=== PATIENT | female | born 1970 | race Caucasian/White ===

== ENCOUNTER 2018-05-02 11:47 | Outpatient (REF) | payer OTHER, SELFPAY ==
[2018-05-02 19:12] LABS: BUN 15 mg/dL (7-18); CREATININE 0.93 mg/dL (0.55-1.02); Calcium 9.5 mg/dL (8.5-10.1); Chloride 104 mmol/L (98-107); Glucose 91 mg/dL (70-100); Potassium 4.5 mmol/L (3.5-5.1); Sodium 141 mmol/L (136-145); TSH 3.41 uIU/mL (0.358-3.74)
== END 2018-05-02 12:07 ==
LOC: NCHCN 11:47
PROVIDERS: PCP Physician Assistant Medical; Visit Provider Nurse Practitioner Family
DX: I10 Essential (primary) hypertension (principal); E03.9 Hypothyroidism, unspecified
CPT/HCPCS: 80048; 84443

== ENCOUNTER 2020-01-16 18:36 | Outpatient (REF) | payer OTHER, SELFPAY ==
[2020-01-16 21:05] LABS: HGB 13.9 g/dL (11.2-15.7); MCH 28.4 pg (27.0-33.0); MCHC 32.3 % (32.0-36.0); MCV 87.8 fL (80-95); MPV 11.9 fL (8.0-11.0); Platelet Count 250 10^3/uL (130-400); RDW 12.7 % (11.7-14.6); RDW-SD 41.1 fL; WBC 9.34 10^3/uL (4.4-10.8)
[2020-01-16 21:57] LABS: Amylase 47 U/L (25-115); Anion Gap 6.1 mmol/L (3-11); BUN 13 mg/dL (7-18); CO2 27.9 mmol/L (21.0-32.0); CREATININE 1.06 mg/dL (0.55-1.02); Chloride 104 mmol/L (98-107); Estimated GFR 54.87 (mL/min/1.73m2); Glucose 107 mg/dL (74-106); Lipase 144 U/L (73-393); Sodium 138 mmol/L (136-145)
== END 2020-01-16 18:56 ==
LOC: NCHCN 18:36
PROVIDERS: PCP Nurse Practitioner Family; Visit Provider Nurse Practitioner Family
DX: R10.9 Unspecified abdominal pain (principal); E03.9 Hypothyroidism, unspecified
CPT/HCPCS: 80048; 80061; 82550; 83690; 85027; 82150; 84443; 84450; 84460

== ENCOUNTER 2021-08-22 15:20 | Emergency (ER) | payer OTHER, SELFPAY ==
[2021-08-22 15:34] VITALS: BP 119/59; PULSE 103; RESP 16; TEMP 36.6; O2SAT 97
--- NOTE | 2021-08-22 15:45 | DI.CT_ITS ---
Exam(s) CT ABDOMEN PELVIS WO EXAM: CT ABDOMEN PELVIS WO CLINICAL HISTORY: hx of colitis, 2 weeks diarrhea. TECHNIQUE: Imaging Protocol: Axial computed tomography images with coronal and sagittal reformatted images were created and reviewed. COMPARISON: CT ABD PELVIS WITH CONTRAST from 07/23/2015 FINDINGS: ABDOMEN: Lung Bases: Normal where visualized. Liver: Normal density. No measurable mass. Gallbladder and biliary tract: Status post cholecystectomy. No biliary ductal dilatation. Pancreas: Normal density, no abnormal calcifications or inflammatory process. Spleen: Normal. Kidneys: Normal size, contour and axis.No radiodense stones or obstructive uropathy. No masses seen. Adrenal glands: No mass is seen. Lymph nodes: Within normal limits. Abdominal Aorta: Abdominal portion non-dilated. Mild atherosclerosis. PELVIS: Bladder:Symmetric distention, no gross wall thickening. Bowel: No obstruction or bowel wall thickening. Appendix is unremarkable. Peritoneal cavity: No ascites, collection or mesenteric inflammatory response. No free air. Reproductive organs: Within normal limits. Bones: Within normal limits. Soft Tissues: Within normal limits. IMPRESSION: No acute abdominal or pelvic process. RADIATION DOSE DELIVERED: 1,073.45mGy.cm Total DLP DATA REPOSITORY: All CT scans at this facility are submitted to the National Radiology Data Registry (NRDR) Dose Index Registry (DIR) with the [employer] (ACR). RADIATION OPTIMIZATION: All CT scans at this facility use at least one of these dose optimization te chniques: automated exposure control; mA and/or kV adjustment per patient size (includes targeted exa ms where dose is matched to clinical indication); or iterative reconstruction.
--- NOTE | 2021-08-22 16:00 | W.ED.GENAD ---
Discharge Plan Disposition Patient Disposition: HOME Condition: Stable Discharge Details Chief Complaint: Nausea/Vomit/Diar Clinical Impression: Diarrhea, Hypokalemia Primary Care Provider: Lalo Potts ED Provider: Iftikhar Beck Home Meds and New Rx's Prescriptions: No Action ibuprofen 800 MG tablet 800 mg PO Q8H PRN PRN sumatriptan succinate [Imitrex] 100 MG tablet 100 mg PO PRN Qty: 6 levothyroxine [Synthroid] 50 MCG tablet 50 mcg PO DAILY Qty: 90 diphenoxylate-atropine [Lomotil] 1 TAB tablet 1 ea PO QLOOSE PRNQty: 20 acetazolamide 500 mg Capsule, Extended Release 500 mg PO BID amitriptyline 25 mg Tablet 25 mg PO .QHS lisinopril 10 mg Tablet 10 mg PO DAILY oxycodone 5 mg Capsule 5 mg PO pregabalin 150 mg Capsule 150 mg PO QID Discharge Instructions Instructions: Hypokalemia (ED), Acute Diarrhea (ED) Additional Instructions: Please follow-up with GI in the coming weeks for further evaluation. Ensure that you stay hydrated consider using Pedialyte and/or Gatorade. Return to the emergency department for worsening symptoms specifically signs of dehydration or worsening diarrhea. Medical Decision Making 50-year-old female history of leukocytic colitis presents with 2 weeks of diarrhea, has not heard back from primary care doctor regarding blood tests were performed this week as well as a stool sample that was performed this week. Increased diarrhea some mucus involved. Nausea decreased p.o. intake. Sensation of dehydration. Does have slight drying of oral mucosa is mildly tachycardic. Abdomen soft nontender nondistended. Consider colitis, infectious versus inflammatory less likely ischemic given no component of pain versus food allergy versus electrolyte abnormality versus less likely appendicitis, patient has no urinary symptoms such as polyuria or dysuria therefore less likely cystitis or pyelonephritis. Screening labs imaging including CT abdomen pelvis with oral contrast, \18: 48 patient resting comfortably no acute distress. Hypokalemia on labs, p.o. and IV repletion completed. IV fluid administered. Patient's heart rate has decreased to normal range. Color is improved. Feeling better. CT largely unremarkable. Patient will be given GI follow-up at [facility] for second opinion. Home care instructions and return precautions given HPI General Date/Time Provider Initiated Documentation: 08/22/21 15:39. HPI Narrative: 50-year-old female history of leukocytic colitis, presents with 2 weeks of diarrhea, nonbloody sometimes mucoid, decreased p.o. intake sensation of dehydration and fatigue. Had blood work done 2 days ago but has not heard back from her physician regarding these results also gave a stool sample has not heard back on results. Is followed by GI specialist and neurology specialist at [facility]. No recent hospitalization, no recent antibiotics. No history of C. difficile. No urinary symptoms Related Data Home Medications Medication Instructions Recorded Confirmed ibuprofen 800 mg tablet 800 mg PO Q8H PRN PRN 07/25/12 08/22/21 sumatriptan succinate 100 mg 100 mg PO PRN #6 tabs 05/27/15 08/22/21 tablet (Imitrex) levothyroxine 50 mcg tablet 50 mcg PO DAILY #90 tabs 05/28/15 08/22/21 (Synthroid) diphenoxylate-atropine 2.5 1 ea PO QLOOSE PRN #20 tabs 08/11/15 08/22/21 mg-0.025 mg tablet (Lomotil) acetazolamide 500 mg 500 mg PO BID 08/22/21 08/22/21 capsule,extended release amitriptyline 25 mg tablet 25 mg PO .QHS 08/22/21 08/22/21 lisinopril 10 mg tablet 10 mg PO DAILY 08/22/21 08/22/21 oxycodone 5 mg capsule 5 mg PO 08/22/21 pregabalin 150 mg capsule 150 mg PO QID 08/22/21 08/22/21 Allergies Allergy/AdvReac Type Severity Reaction Status Date / Time amoxicillin Allergy Unknown Unverified 07/31/15 13:40 General Stated Complaint: Nausea/Vomit/Diar BENJAMIN: 3 Review of Systems Narrative: Review of Systems Constitutional: Dehydration fatigue Eyes: negative ENT: negative Cardiovascular: negative Respiratory: negative Gastrointestinal: Diarrhea : negative Musculoskeletal: negative Skin: negative Neurologic: negative Psych: negative PFSH All Active Problems (Updated 08/22/21 @ 18:50 by Iftikhar Beck MD) Diarrhea (Acute) Hypokalemia (Acute) Medical History (Updated 08/22/21 @ 18:50 by Iftikhar Beck MD) HTN (hypertension) Hypothyroidism Surgical History (Updated 01/11/18 @ 14:35 by [employer] [place]) Cholecystectomy 2007 Social History Smoking/Tobacco Use Status: Never Smoking risk assessment performed?: Yes Alcohol Intake: never Drug use: Never Exam Narrative Exam Narrative: Physical Examination General: alert, awake, cooperative, resting comfortably, no acute distress HEENT: normocephalic, atraumatic; PERRL, EOM intact, conjunctiva normal; no nasal discharge; slight drying of oral mucosa Neck: supple, trachea midline; full ROM Chest: normal to inspection Respiratory: normal respiratory effort, speaking in full sentences, clear to auscultation, no wheezing, rales or rhonchi Cardiac: Tachycardia, regular rhythm, S1S2 intact, no murmurs rubs or gallops GI: abdomen soft, non-tender, non-distended; no palpable mass or hepatosplenomegaly Skin: no lesions, rashes or trauma appreciated Neuro: AAOx3, normal speech, moving all extremities Psych: Appropriate mood and affect Course Vital Signs Vital signs: Vital Signs Temperature 36.6 C 08/22/21 15:34 Pulse 103 H 08/22/21 15:34 Respiratory Rate 16 08/22/21 15:34 Blood Pressure 119/59 L 08/22/21 15:34 Pulse Oximetry 97 08/22/21 15:34 Temperature 36.6 C 08/22/21 15:34 Temperature Source Oral 08/22/21 15:34 Pulse 103 H 08/22/21 15:34 Respiratory Rate 16 08/22/21 15:34 Respiratory Effort 08/22/21 15:34 Blood Pressure 119/59 L 08/22/21 15:34 Blood Pressure Position Sitting 08/22/21 15:34 Pulse Oximetry 97 08/22/21 15:34 Oxygen Delivery Method Room Air 08/22/21 15:34 Oxygen Flow Rate 0 08/22/21 15:34 Pain Level 6 08/22/21 15:34
[2021-08-22 16:23] LABS: Abs Immature Grans 0.03 10^3/uL (0.0-0.06); Absolute Basophil Count 0.05 10^3/uL (0.0-0.2); Absolute Eosinophil Count 0.14 10^3/uL (0.0-0.7); Absolute Lymphocyte Count 0.87 10^3/uL (1.2-3.4); Absolute Neutrophil Count 3.69 10^3/uL (1.2-6.7); Basophils % 0.9; Eosinophils % 2.6; HCT 45.8 % (36.0-46.0); HGB 15.2 g/dL (11.2-15.7); Immature Grans % 0.5; Lymphocytes % 15.9; MCH 27.8 pg (27.0-33.0); MCHC 33.2 % (32.0-36.0); MCV 84 fL (80-95); MPV 10.6 fL (8.0-11.0); Monocytes % 12.8; Neutrophils % 67.3; Platelet Count 250 10^3/uL (130-400); RBC 5.46 10^6/uL (3.93-5.22); RDW 13.8 % (11.7-14.6); RDW-SD 42.1 fL; WBC 5.48 10^3/uL (4.4-10.8)
[2021-08-22] MEDS: Breeza Beverage 473 ML BTL PO ×2 (16:26→16:28)
[2021-08-22] MEDS: Ondansetron 4 MG/2 ML VIAL IVP (16:27)
[2021-08-22] MEDS: Normal Saline 1,000 ML 1000 ML IV (16:27)
[2021-08-22 16:44] LABS: ALT 58 U/L (14-59); AST 23 U/L (15-37); Alkaline Phosphatase 94 U/L (46-116); Anion Gap 10.4 mmol/L (3-11); BUN 11 mg/dL (7-18); Bilirubin, Total 0.3 mg/dL (0.2-1.0); CO2 26.6 mmol/L (21.0-32.0); CREATININE 1.1 mg/dL (0.55-1.02); Calcium 8.9 mg/dL (8.5-10.1); Chloride 105 mmol/L (98-107); Estimated GFR 52.36 (mL/min/1.73m2); Glucose 94 mg/dL (74-106); Magnesium 2.3 mg/dL (1.8-2.4); Sodium 142 mmol/L (136-145); TSH (W/Ref FT4) 2.87 uIU/mL (0.36-3.74); Total Protein 7.1 g/dL (6.4-8.2)
[2021-08-22 16:48] LABS: Potassium 2.7 mmol/L (3.5-5.1)
[2021-08-22] MEDS: Potassium Chloride 20 MEQ TABCR PO (17:17)
[2021-08-22] MEDS: POTASSIUM CHLORIDE 10 MEQ/100 ML BAG 100 MEQ IVPB (17:17)
[2021-08-22 17:49] VITALS: BP 106/43; PULSE 84; RESP 16; TEMP 36.2; O2SAT 100
--- NOTE | 2021-08-22 18:07 | DI.VRAD_ITS ---
PROCEDURE INFORMATION: Exam: CT Abdomen And Pelvis Without Contrast Exam date and time: 08/22/2021 5:39 PM Age: 50 years old Clinical indication: Patient HX: HX of colitis, 2 weeks diarrhea TECHNIQUE: Imaging protocol: Computed tomography of the abdomen and pelvis without contrast. Other contrast: Oral, Gastrovue/Breeza, 25mL; COMPARISON: CT ABD PELVIS WITH CONTRAST 07/23/2015 6:59 PM FINDINGS: Liver: Normal. No mass. Gallbladder and bile ducts: The gallbladder is surgically absent. Pancreas: Normal. No ductal dilation. Spleen: Normal. No splenomegaly. Adrenal glands: Normal. No mass. Kidneys and ureters: The axis of the right kidney is rotated somewhat anteriorly. Otherwise, no abnormality is noted. There is no hydronephrosis on the right or the left. No nephrolithiasis. Stomach and bowel: Unremarkable. No obstruction. No mucosal thickening. Appendix: The appendix appears normal. Intraperitoneal space: Unremarkable. No free air. No significant fluid collection. Vasculature: Unremarkable. No abdominal aortic aneurysm. Lymph nodes: Unremarkable. No enlarged lymph nodes. Urinary bladder: Unremarkable as visualized. Reproductive: The uterus appears unremarkable. No adnexal masses are seen. Bones/joints: Unremarkable. No acute fracture. Soft tissues: Morbid obesity is present. IMPRESSION: 1. No acute findings. 2. Status post cholecystectomy. 3. Morbid obesity. Dictated and Authenticated by: Juan Manuel Brice MD. Ordering:SHAMEAK Buitrago MD
[2021-08-22 18:50] VITALS: BP 114/74; PULSE 87; RESP 18; TEMP 36.2; O2SAT 100
--- NOTE | 2021-08-22 18:52 | NUR.NOTE ---
Nursing Note: Referral given to Care Management to [facility] for chronic diarrhea in 1 to 2 weeks. Judith Forde
[2021-08-22 18:59] VITALS: BP 114/74; PULSE 87; RESP 18; TEMP 36.2; O2SAT 100
--- NOTE | 2021-08-25 11:35 | PDOC.ERCMACT ---
- If Service Date Differs Date of service: 08/25/21 Time of Service: 11:35 Care Management Activity Note Peggy is seen in the ED for chronic diarrhea. At the request of ED provider, GALE coordinates a referral to [facility] to assist Peggy in obtaining a second opinion. She has [employer] for insurance.
== END 2021-08-22 19:00 | disposition home or self-care (01) ==
PROVIDERS: Emergency Provider Emergency Medicine; PCP Nurse Practitioner Family
DX: R19.7 Diarrhea, unspecified (principal); E87.6 Hypokalemia
CPT/HCPCS: 80053; 96361; 96365; 96375; 99284; 74176; 83735; 84443; 85025; J2405; J3480; J3490

== ENCOUNTER 2024-05-28 08:44 | Emergency (ER) | payer BC, SELFPAY ==
[2024-05-28] VITALS (18 sets, daily range): BP systolic 131–145; BP diastolic 85–94; PULSE 27–130; RESP 13–23; TEMP 37.4–37.7; O2SAT 71–97
--- NOTE | 2024-05-28 09:00 | RT.EKG_ITS ---
APPROVED REPORT Exam: Resting ECG Reason for Exam: CP/Abd pain Patient Location: E HR:109 bpm ECG Measurements Heart Rate 109 AXIS MI 135 P 59 QRSd 61 QRS 12 QT 319 T 22 QTc 429 Conclusion Sinus tachycardia, rate 109 No interval abnormalities Isolated Q wave lead III No STEMI No priors available for comparison
--- NOTE | 2024-05-28 09:00 | DI.CT_ITS ---
Exam(s) CT CHEST PE ABD PELVIS W EXAM: CT CHEST PE ABD PELVIS W CLINICAL HISTORY: b/l rib pain, tachy, b/l lower abd pain. TECHNIQUE: Imaging Protocol: Axial CT angiography was performed with multi-slice acquisition and m ulti-planar and/or 3D reconstructions. CONTRAST MATERIAL: Intravenous: Omnipaque 350 Contrast volume:100 ml Oral: None COMPARISON: CT CT ABDOMEN PELVIS WO from 08/22/2021 FINDINGS: CHEST: PULMONARY ARTERIES: There are no intra-arterial filling defects to suggest the presence of acute pulm onary emboli. LUNGS: There is no evidence of pulmonary infarction.No confluent infiltrates ominous pulmonary nodule s. There are no pleural effusions. MEDIASTINUM: There is no hilar adenopathy. There are few is slightly prominent lymph nodes in the an terior left para-aortic mediastinal fat and in the subcarinal region. CARDIAC: Heart size is normal. There is no pericardial effusion. There is no significant shift of t he interventricular septum.Caliber of the thoracic aorta is within normal limits. No evidence of aor tic dissection. OSSEOUS: No significant osseous lesions.. ABDOMEN: There is a anterior midline subcutaneous shunt which enters the abdomen anteriorly slightly to the le ft and above the umbilicus. This shunt appears circular/continuous. There is no ascites. LIVER: There are no focal hepatic lesions nor dilatation of intrahepatic ducts. GALLBLADDER/BILIARY: The gallbladder is again noted to be surgically absent. CBD is not dilated. PANCREAS: No evidence of pancreatic mass nor dilatation of the pancreatic duct. SPLEEN: Spleen is not enlarged. There are no intrasplenic lesions. Splenic and portal veins are nguyen nt. ADRENALS: There are no significant adrenal masses. KIDNEYS:Left kidney unremarkable. Right kidney is again noted to be mild rotated with right renal hi lum pointing anteriorly, similar to previous. There does appear to be some peripheral enhancement of the mucosa of the extrarenal pelvis of the right kidney, possibly significant as there is also sligh t CIS streaking around and enhancement of the right ureter. There is no renal mass. No calculi nor hydronephrosis.. However, the urinary bladder wall appears mildly thickened in diffuse fashion. ABDOMINAL AORTA: Abdominal aorta is not enlarged. LYMPH NODES: There is no retroperitoneal or para-aortic adenopathy. ABDOMINAL WALL/GI: No evidence of significant anterior abdominal wall hernia. No bowel obstruction. PELVIS: LYMPH NODES: There is no intrapelvic nor inguinal adenopathy. GI: No evidence of appendicitis.There are few uncomplicated appearing sigmoid diverticuli. No eviden ce of acute diverticulitis URINARY BLADDER: Slightly thickened wall uniform fashion. REPRODUCTIVE: Uterus appears unremarkable. The left ovary appears unremarkable. Right ovary not vis ualized. There is no free fluid in the pelvis. OSSEOUS: No significant osseous lesions. IMPRESSION: 1. No evidence of acute pulmonary emboli nor pulmonary infarction. No infiltrates nor pleural effusi ons. Slightly enlarged subcarinal and anterior mediastinal lymph nodes. No hilar adenopathy 2. 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 This enters the abdominal cavity slightly left of center. It is a rhianna nuous shunt with no distal tip. There is no ascites. 3. 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 There is some enhancement of the right renal pelvis an d ureter, most probably related to infection. The appearance obvious bladder also most probably refl ects cystitis. There is no hydronephrosis. No radiopaque calculi seen. No renal masses. 4. Gallbladder is again noted be surgically absent. The biliary tree is not dilated. Called to ER 05/28/2024 at 10:40 a.m. RADIATION DOSE DELIVERED: 675.45mGy.cm Total DLP DATA REPOSITORY: All CT scans at this facility are submitted to the National Radiology Data Registry (NRDR) Dose Index Registry (DIR) with the [employer] (ACR). RADIATION OPTIMIZATION: All CT scans at this facility use at least one of these dose optimization te chniques: automated exposure control; mA and/or kV adjustment per patient size (includes targeted exa ms where dose is matched to clinical indication); or iterative reconstruction.
--- NOTE | 2024-05-28 09:09 | W.ED.GENAD ---
Discharge Plan Disposition Patient Disposition: Home Condition: Stable Discharge Details Clinical Impression: Pyelonephritis Primary Care Provider: Lalo Potts ED Provider: Hoa Burden Home Meds and New Rx's Prescriptions: New cephalexin 500 mg capsule 500 mg PO QID 10 Days Qty: 40 0RF fluconazole 150 mg tablet 150 mg PO ONCE Qty: 1 0RF Rx Instructions: as a single dose for yeast infection symptoms No Action ibuprofen 800 MG tablet 800 mg PO Q8H PRN PRN sumatriptan succinate [Imitrex] 100 MG tablet 100 mg PO PRN Qty: 6 levothyroxine [Synthroid] 50 MCG tablet 50 mcg PO DAILY Qty: 90 diphenoxylate-atropine [Lomotil] 1 TAB tablet 1 ea PO QLOOSE PRNQty: 20 lisinopril 10 mg Tablet 10 mg PO DAILY Discharge Instructions Instructions: Urinary Tract Infection, Adult ED Additional Instructions: You were seen in the emergency department today for evaluation of abdominal and back pain, and were found to have a urinary tract infection. You had reassuring laboratory studies though your white blood cell count was slightly elevated, and had a CT scan that did not show any severe abnormalities that would require you to stay in the hospital. You received your first dose of antibiotics here in the emergency department, and I have sent a prescription for antibiotics to your pharmacy as well as a tablet for treatment of yeast infection. Please take all these antibiotics until they are gone, even if you start to feel better. Please follow-up with your primary care provider in the next few days to discuss this visit and any symptoms that change, worsen, or persist. Thank you for allowing us to be part of your care. HPI General Mode of arrival: ambulatory. Date/Time Provider Initiated Documentation: 05/28/24 08:45. Limitations to Documentation: no limitations. Information obtained by: patient, family and old records reviewed. 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 The patient reports that the symptoms started last night well enjoying a relaxing evening at home. She states that the pain was achy, and is intermittently sharp, worse primarily with movement, sometimes after a deep breath or cough. The patient is recovering from a viral upper respiratory infection, states that she has had a persistent cough for the last 3 weeks. She has not noted fever, does have nausea but no vomiting, passed a normal stool this morning. Last night she took a dose of Tylenol with some improvement, but had a recurrence of her pain that has persisted throughout the night, prompting her to seek care. She reports that she is not experiencing chest pain, but does feel quite sweaty. She had been eating and drinking typically up to the onset of this pain. No vaginal bleeding or discharge, has a history of irregular periods. No dysuria, hematuria, does have some bilateral back pain. Exam: Gen: Awake and alert, in no apparent distress HEENT: Non-icteric sclera Neck: Supple Lungs: No apparent respiratory distress, normal respiratory effort. Lung sounds clear and equal bilaterally without wheezes, rhonchi, rales CV: Appears well perfused, heart with tachycardic rate but regular rhythm, strong distal pulses Abdomen: Non-distended, soft, minimal tenderness to palpation in the bilateral upper quadrants, otherwise abdominal examination is benign. MSK: Moves 4 extremities without apparent limitation in ROM. The patient has no midline back pain, does have some sensitivity with palpation over the CVA region, no true CVA tenderness. No peripheral edema, no unilateral calf swelling or tenderness Skin: Visualized skin without rashes, cyanosis. Neuro: Normal Gait, no obvious focal deficits or facial asymmetry. Speaks in full, clear sentences. Psych: Appropriate for situation. MDM: This is a 53-year-old female patient presenting for evaluation of bilateral upper abdominal pain, tachycardia and nausea. Differential is quite broad, includes but is not limited to ACS, arrhythmia, pulmonary abnormalities including pneumonia, pulmonary embolism was also considered in this tachycardic patient. I considered abdominal etiologies including gastritis/PUD, pancreatitis, hepatitis, appendicitis, diverticulitis, less likely bowel obstruction in this patient with a benign exam who is passing stool. Considered urinary tract infection, metabolic and electrolyte derangement, dehydration and kidney injury. We will obtain an EKG, laboratory studies to include CBC, CMP, magnesium, lipase, lactate, and UA. I will obtain a troponin, as well as a CT of her chest for pulmonary embolism and abdomen pelvis with contrast. I will provide her with a dose of Tylenol and Zofran for initial symptomatic management. ED Course: I reviewed the patient's EKG, which shows a normal sinus rhythm without ischemia, interval abnormality, or ectopy. I independently interpreted the laboratory studies, which show a leukocytosis to 18, but no anemia, or thrombocytopenia. The chemistry panel is without evidence of electrolyte abnormality, kidney dysfunction, or liver injury. Lipase and troponin are low. Urinalysis is infectious appearing, with positive nitrites and pyuria. For this reason I did initiate ceftriaxone while awaiting CT imaging. I independently reviewed the patient CT scan, which does show a malrotated right kidney with some surrounding enhancement for pyelonephritis. 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 On reassessment, the patient reports that her symptoms are improved, her tachycardia has resolved, and I do feel that she will be appropriate for transition to oral antibiotics. A prescription for Keflex was sent to her pharmacy as well as a dose of Diflucan given history of frequent vaginal yeast infections in the setting of antibiotic use. At this time, the patient has had a full medical evaluation and is safe for discharge to home. They are hemodynamically stable, ambulatory, and tolerating PO. They are understanding of the follow-up plan and return precautions. They left our facility without incident. Hoa Burden MD Related Data Home Medications ?Medication ?Instructions ?Recorded ?Confirmed ibuprofen 800 mg tablet 800 mg PO Q8H PRN PRN 07/25/12 05/28/24 sumatriptan succinate 100 mg 100 mg PO PRN #6 tabs 05/27/15 05/28/24 tablet (Imitrex) levothyroxine 50 mcg tablet 50 mcg PO DAILY #90 tabs 05/28/15 05/28/24 (Synthroid) diphenoxylate-atropine 2.5 1 ea PO QLOOSE PRN #20 tabs 08/11/15 05/28/24 mg-0.025 mg tablet (Lomotil) lisinopril 10 mg tablet 10 mg PO DAILY 08/22/21 05/28/24 cephalexin 500 mg capsule 500 mg PO QID 10 days #40 caps 05/28/24 fluconazole 150 mg tablet 150 mg PO ONCE #1 tab 05/28/24 Previous Rx's ?Medication ?Instructions ?Recorded cephalexin 500 mg capsule 500 mg PO QID 10 days #40 caps 05/28/24 fluconazole 150 mg tablet 150 mg PO ONCE #1 tab 05/28/24 Allergies Allergy/AdvReac Type Severity Reaction Status Date / Time amoxicillin Allergy Unknown Unverified 09/26/21 09:20 General Stated Complaint: Abd Prob BENJAMIN: 3 Course Vital Signs Vital signs: Vital Signs Temperature 37.7 C H 05/28/24 08:52 Pulse 125 H 05/28/24 08:52 Respiratory Rate 16 05/28/24 08:52 Blood Pressure 140/85 05/28/24 08:52 Pulse Oximetry 97 05/28/24 08:52 Temperature 37.7 C H 05/28/24 08:55 Temperature Source Oral 05/28/24 08:55 Pulse 130 H 05/28/24 08:55 Respiratory Rate 18 05/28/24 08:55 Blood Pressure 140/85 05/28/24 08:55 Blood Pressure Position Sitting 05/28/24 08:55 Pulse Oximetry 97 05/28/24 08:55 Oxygen Delivery Method Room Air 05/28/24 08:55 Oxygen Flow Rate 0 05/28/24 08:52 Pain Level 8 05/28/24 08:55 Medical Decision Making Quality:SDOH Health Related Social Needs: No Data to Display PFSH All Active Problems (Updated 05/28/24 @ 10:49 by Hoa Burden MD) Pyelonephritis (Acute) Medical History HTN (hypertension) Hypothyroidism Surgical History Cholecystectomy 2007 Social History Smoking/Tobacco Use Status: Never Smoking risk assessment performed?: Yes Alcohol Intake: never Drug use: Never Housing: house Do you feel safe at home: Yes Do you feel safe in your relationship?: Yes
[2024-05-28 09:28] LABS: Lactate 1.4 mmol/L (<or=2.0)
[2024-05-28] MEDS: Ondansetron 4 MG/2 ML VIAL IVP (09:29)
[2024-05-28] MEDS: ACETAMINOPHEN 1,000 MG/100 ML BAG 400 MG IVPB (09:29)
[2024-05-28 09:31] LABS: Abs Immature Grans 0.09 10^3/uL (0.0-0.06); Absolute Monocyte Count 1.56 10^3/uL (0.1-0.8); Absolute Neutrophil Count 15.66 10^3/uL (1.2-6.7); Basophils % 0.3 %; Eosinophils % 0.1 %; HCT 46.9 % (36.0-46.0); Immature Grans % 0.5 %; Lymphocytes % 4.3 %; MCH 28.2 pg (27.0-33.0); MCV 88 fL (80-95); MPV 10.1 fL (8.0-11.0); Monocytes % 8.6 %; Neutrophils % 86.2 %; Platelet Count 269 10^3/uL (130-400); RBC 5.31 10^6/uL (3.93-5.22); RDW 12.2 % (11.7-14.6); RDW-SD 39.8 fL; WBC 18.17 10^3/uL (4.4-10.8)
[2024-05-28 09:32] LABS: Bilirubin Negative (Negative); Blood Moderate (Negative); Clarity Cloudy (Clear); Glucose Negative (Negative); Ketones Negative (Negative); Leukocyte Esterase Moderate (Negative); Nitrite Positive (Negative); Specific Gravity 1.015 (1.005-1.025); Urobilinogen 0.2 mg/dL (Up to 0.2)
[2024-05-28 09:33] LABS: Absolute Basophil Count 0.05 10^3/uL (0.0-0.2); Absolute Eosinophil Count 0.02 10^3/uL (0.0-0.7); Absolute Lymphocyte Count 0.78 10^3/uL (1.2-3.4)
[2024-05-28 09:46] LABS: WBC >50 HPF (0-5)
[2024-05-28 09:47] LABS: C & S Indicated? Yes
[2024-05-28 09:50] LABS: Diff Comment Diff Reviewed; RBC Morphology Normal
[2024-05-28 09:52] LABS: ALT 26 U/L (14-59); AST 13 U/L (15-37); Albumin 3.6 g/dL (3.4-5.0); Alkaline Phosphatase 84 U/L (46-116); Anion Gap 9.7 mmol/L (3-11); BUN 10 mg/dL (7-18); Bilirubin, Total 0.71 mg/dL (0.2-1.0); CO2 30.3 mmol/L (21.0-32.0); Calcium 9.7 mg/dL (8.5-10.1); Chloride 102 mmol/L (98-107); Estimated GFR 66.95 (mL/min/1.73m2); Glucose 131 mg/dL (74-106); Lipase 30 U/L (<78); Magnesium 1.9 mg/dL (1.8-2.4); Potassium 4.1 mmol/L (3.5-5.1); Sodium 142 mmol/L (136-145); Total Protein 7.5 g/dL (6.4-8.2); Troponin I 4 ng/L (<or=51)
[2024-05-28] MEDS: Normal Saline - Diluent 50 ML VIAL IJ (10:04)
[2024-05-28] MEDS: Omnipaque 350 MG/ML 100 ML BTL 80 ML IJ (10:04)
[2024-05-28] MEDS: cefTRIAXone 1 GM/50 ML BAG IVPB (10:16)
== END 2024-05-28 11:07 | disposition home or self-care (01) ==
LOC: ER 11:12
PROVIDERS: Emergency Provider Emergency Medicine; PCP Nurse Practitioner Family
DX: N10 Acute pyelonephritis (principal); R00.1 Bradycardia, unspecified; I10 Essential (primary) hypertension; E03.9 Hypothyroidism, unspecified; Q63.2 Ectopic kidney; Z90.49 Acquired absence of other specified parts of digestive tract; Z98.2 Presence of cerebrospinal fluid drainage device
CPT/HCPCS: 36415; 71275; 74177; 80053; 83690; 87077; 93005; 96365; 96367; 96375; 99285; 81003; 81015; 83605; 83735; 84484; 85025; 87086; 87186; 93010; J0131; J0696; J2405; J3490